=== PATIENT | female | born 1990 | race Caucasian/White ===

== ENCOUNTER 2017-06-08 07:17 | Inpatient (IN) | payer OTHER ==
[~2017-06-08] VITALS: Ht 170.2 cm; Wt 74.8 kg
[~2017-06-08 07:17] MED LIST: ACCUNEB 3 ML3 M1 INH; ACCUNEB 3 ML3 M1 NEB; ADVAIR DISKUS 21 DSK; ADVAIR DISKUS 21 DSK INH; ADVAIR DISKUS1 UNIT INH; ALBUTEROL SULFAT3 M1 NEB; ATROVENT HFA 121 PUF INH; MONTELUKAST SOD10 MG; PREDNISONE 10MG10 M1 PO; PREDNISONE 20MG20 MG PO; PREDNISONE10 MG PO; PREDNISONE50 M1 PO; PROAIR HFA0.09 MG/Ac INH; SINGULAIR10 MG PO; VENTOLIN HFA18 GM INH; VENTOLIN1 PUF INH; ZITHROMAX Z-PA250 M1 PO; ZITHROMAX250 M2 PO
--- NOTE | 2017-06-08 07:28 | ED DYSPNEA/ASTHMA COMPLAINT ---
History of Present Illness General Chief Complaint: Dyspnea (COPD, CHF, Other) Stated Complaint: BIBA, DIFF BREATHING Source: patient Exam Limitations: clinical condition Vital Signs & Intake/Output Vital Signs & Intake/Output Vital Signs Date Time Temp Pulse Resp B/P B/P Pulse O2 O2 Flow FiO2 Mean Ox Delivery Rate 06/08 918 99.4 107 26 122/63 94 Nasal 3.0L Cannula 06/08 0845 94 Nasal 3.0L Cannula 06/08 0801 94 Nasal 3.0L Cannula 06/08 0742 94 Nasal 3.0L Cannula 06/08 722 98.9 117 26 141/70 95 Nasal 3.0L Cannula Allergies Coded Allergies: Sulfa (Sulfonamide Antibiotics) (UNKNOWN 06/06/17) cefaclor (UNKNOWN 06/06/17) Reconcile Medications Albuterol Sulfate (Ventolin Hfa) 90 MCG HFA.AER.AD 2 PUF INH Q4-6 PRN PRN wheeze Budesonide/Formoterol Fumarate (Symbicort 160-4.5 Mcg Inhaler) 160 MCG-4.5 MCG/ ACTUATION HFA.AER.AD 2 PUF INH BID BREATHING PROBLEMS (Reported) Omeprazole 20 MG CAPSULE.DR 20 MG PO DAILY AC ASTHMA Prednisone 10 MG TABLET 1 TAB PO DAILY ASTHMA Triage Nurses Notes Reviewed? yes Onset: Gradual Duration: day(s):, continues in ED, getting worse Severity: severe Activities at Onset: none : No Patient currently breastfeeds: No HPI: Patient presents for evaluation of severe shortness of breath that began 3 days ago. Shortness of breath is been severe nearly constant but fluctuates in intensity. Patient gets mild relief with albuterol. She was evaluated about 3 days ago in the emergency department for the same symptom complex and has been taking albuterol prednisone Symbicort and a Z-Hira. She is a cigarette smoker although has cut down over the past few days. Past medical history of asthma. Symptoms worsened with exertion and coughing. All the patient denies fever or cold symptoms, she has been wheezing and coughing and producing phlegm. Past History Travel History Traveled to [place] past 21 day No Medical History Any Pertinent Medical History? 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 No Review of Systems Review of Systems Constitutional: Reports: no symptoms. EENTM: Reports: no symptoms. Respiratory: Reports: see HPI. Cardiovascular: Reports: no symptoms. GI: Reports: no symptoms. Genitourinary: Reports: no symptoms. Musculoskeletal: Reports: no symptoms. Skin: Reports: no symptoms. Neurological/Psychological: Reports: no symptoms. Hematologic/Endocrine: Reports: no symptoms. Immunologic/Allergic: Reports: no symptoms. All Other Systems: Reviewed and Negative Physical Exam Physical Exam Respiratory: SEE BELOW Comments: Gen.: Well-nourished, well-developed, moderate respiratory distress. Head: Normocephalic, atraumatic. Eyes: Normal inspection bilaterally Ears: Normal inspection bilaterally Nose: Normal inspection Throat/mouth : Moist mucosa Neck: Supple, full range of motion, no goiter Heart: Regular rate and rhythm, no murmurs rubs or gallops Lungs: Decreased air entry bilaterally with scattered end expiratory wheezing Chest: Nontender Back: Normal range of motion Abdomen: Soft, nontender, nondistended, normal bowel sounds Extremities: Normal range of motion grossly, equal radial pulses, no cyanosis clubbing or edema, calves nontender Neurologic: Cranial nerves grossly intact, speech is clear Skin: warm and dry Psychiatric: Calm, cooperative, no apparent delusions or hallucinations Core Measures ACS in differential dx? No CVA/TIA Diagnosis No Sepsis Present: No Sepsis Focused Exam Completed? No Progress Differential Diagnosis: bronchitis, CHF, COPD, pneumonia, pneumothorax Plan of Care: Orders Procedure Date/time Status AEROSOL CHG 06/10 UNK Complete PEAK FLOW MEASUREMENT 06/10 UNK Complete OXYGEN 06/10 UNK Complete OXYGEN DAILY CHARGE 06/10 UNK Complete AEROSOL CHG 06/09 UNK Complete PEAK FLOW MEASUREMENT 06/09 UNK Complete OXYGEN 06/09 UNK Complete OXYGEN DAILY CHARGE 06/09 UNK Complete OXYGEN SETUP CHG 06/08 UNK Complete AEROSOL CHG 06/08 UNK Complete PEAK FLOW MEASUREMENT 06/08 UNK Complete OXYGEN 06/08 UNK Complete OXYGEN TRANSPORT 06/08 UNK Complete CONTIN. POS. AIRWAY PRESS. CHG 06/08 UNK Complete Diagnostic Imaging: Viewed by Me: Radiology Read. Discussed w/RAD: Radiology Read. CXR Impression: PATIENT: ALANNA CUMMINGS PRESENT AGE: 26 PATIENT ACCOUNT NO: [id number] : 89 LOCATION: [facility] ORDERING PHYSICIAN: Jose Alfredo Figueroa MD SERVICE DATE: 06/08/17 EXAM TYPE: RAD - XRY-PORTABLE CHEST XRAY EXAMINATION: XR PORTABLE CHEST CLINICAL INFORMATION: Cough, wheezing, phlegm COMPARISON: Multiple priors, most recent from 06/06/2017. TECHNIQUE: Portable frontal view of the chest was obtained. FINDINGS: Large lung volumes. No focal airspace opacification. No pleural effusion or pneumothorax. The cardiomediastinal silhouette is within normal limits. Osseous structures are unremarkable. IMPRESSION: No focal airspace disease. DICTATED BY: Meche Campuzano MD DATE/TIME DICTATED:06/08/17757 PC SUPPORT SPECIALIST:NENA DATE/ TIME TRANSCRIBED:06/08/17757 CONFIDENTIAL, DO NOT COPY WITHOUT APPROPRIATE AUTHORIZATION. <Electronically signed in Other Vendor System> SIGNED BY: Meche Campuzano MD 06/08/17804 Initial ED EKG: NSR, no ST T wave changes Comments: 06/08/2017 8:36:38 AM I have reevaluated ALANNA and although she feels better her breath sounds are still diminished and she still has bilateral expiratory wheezing. Another albuterol has been ordered. 06/08/2017 9:30:38 AM although patient feels slightly better. Air entry is still diminished and she still has diffuse end expiratory wheezing. I feel she requires hospitalization. Departure Departure Disposition: STILL A PATIENT Condition: Stable Clinical Impression Primary Impression: Status asthmaticus Qualifiers: Asthma severity: severe Asthma persistence: persistent Qualified Code: J45.52 - Severe persistent asthma with status asthmaticus Referrals: Patient Has No Primary Care Dr (PCP/Family) Departure Forms: Customer Survey General Discharge Information Prescriptions: Current Visit Scripts Prednisone 1 TAB PO DAILY #36 TAB Omeprazole 20 MG PO DAILY AC #30 TAB Admission Note Spoke With: Vaughn White MD Documentation of Exam: Documentation of any treatments & extenuating circumstances including Concerns Regarding Discharge (functional status, medication knowledge or non-compliance, living conditions, etc.) that warrant an admission rather than observation: patient has failed outpatient treatment with azithromycin, prednisone, albuterol and Symbicort, for her asthma exacerbation. I feel that continued outpatient management would only be futile and potentially place the patient at risk of worsening dyspnea, respiratory failure and mortality. She continues to have decreased breath sounds with scattered wheezes and dyspnea. She now requires hospitalization for more aggressive management with inhaled bronchodilators, IV steroids and oxygen supplementation. Oxygen should be weaned as tolerated. Pulmonary consultation should be considered for optimization of medical management and consideration of pulmonary function studies. Patient should be counseled on smoking cessation. I feel she will require a multiple day hospitalization. Observation Note Rationale for Observation: My rational for observation is as follows Critical Care Note Critical Care Note Critical Care Time: 30-74 min
[2017-06-08 07:59] LABS: ABSOLUTE BASOPHIL COUNT 0 /CUMM (0.0-0.2); ABSOLUTE EOSINOPHIL COUNT 0 /CUMM (0.0-0.7); ABSOLUTE GRANULOCYTE CT 10.7 /CUMM (1.4-6.5); ABSOLUTE LYMPH COUNT 0.9 /CUMM (1.2-3.4); BASOPHIL % 0 % (0.0-2.0); EOSINOPHIL % 0 % (0-5)
--- NOTE | 2017-06-08 08:05 | RADIOLOGY REPORT ---
EXAMINATION: XR PORTABLE CHEST CLINICAL INFORMATION: Cough, wheezing, phlegm COMPARISON: Multiple priors, most recent from 06/06/2017. TECHNIQUE: Portable frontal view of the chest was obtained. FINDINGS: Large lung volumes. No focal airspace opacification. No pleural effusion or pneumothorax. The cardiomediastinal silhouette is within normal limits. Osseous structures are unremarkable. IMPRESSION: No focal airspace disease.
[2017-06-08 08:06] LABS: HEMATOCRIT 45.9 % (37-47); MEAN CORPUSCULAR HGB 28.1 PG (27.0-31.0); MEAN CORPUSCULAR VOLUME 82.7 FL (81.0-99.0); PLATELET COUNT 241 /CUMM (130-400); RBC DISTRIBUTION WIDTH 12.6 % (11.5-14.5); RED BLOOD CELL CT 5.55 /CUMM (4.20-5.40)
[2017-06-08 08:12] LABS: WHITE BLOOD CELL COUNT 12.6 /CUMM (4.8-10.8)
[2017-06-08 08:27] LABS: GRANULOCYTE % 84.6 % (42.2-75.2)
[2017-06-08] MEDS ORDERED: SYMBICORT 16010.2 GM INH (08:38)
--- NOTE | 2017-06-08 12:03 | History & Physical ---
Mykel MANTILLA,Caitcelestine 06/08/17 1202: General Information and HPI MD Statement: I have seen and personally examined ALANNA CUMMINGS and documented this H&P. The patient is a 26 year old F who presented with a patient stated chief complaint of [SOB]. Source of Information: patient, family, old records Exam Limitations: no limitations History of Present Illness: This is a 26 yo female with PMH of asthma, anxiety, panic attacks who comes in for CC SOB. She states that her symptoms started about 5 days ago and worsened until she came to ED on Jun 05 for dyspnea with minimal exertion (walking from front door to car). Her symptoms were of sudden onset. She woke up with malaise, some coryza and a dry cough. At peak severity, on day of ED visit, she took 60 puffs of albuterol. Currently down to about 20 puffs a day. She was d/c from ED with albuterol, Azithromax, and prednisone. She has had previous admission to ICU for bipap for asthma exacerbation but never intubated. She is a current smoker with 7 pack year hx. She used to smoke 1 PPD but now down to 3-5 cigarettes a day. Endorses recreational etoh use and no IVDA. She had symbicort at home. The combination of the four meds have resolved some of her discomfort but she still finds herself short of breath with minimal exertion. Currently she endorses SOB, anxiety, palpitations and cough but denies CP, N//V/ D/abdominal pain/headache. Allergies/Medications Allergies: Coded Allergies: Sulfa (Sulfonamide Antibiotics) (UNKNOWN 06/06/17) cefaclor (UNKNOWN 06/06/17) Home Med list Albuterol Sulfate (Ventolin Hfa) 90 MCG HFA.AER.AD 2 PUF INH Q4-6 PRN PRN wheeze Azithromycin (Zithromax) 250 MG TABLET 1 DP PO AD bronchitis ++++ pt received first dose in ED. 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 Exam & Diagnostic Data Last 24 Hrs of Vital Signs/I&O Vital Signs Date Time Temp Pulse Resp B/P B/P Pulse O2 O2 Flow FiO2 Mean Ox Delivery Rate 06/08 1352 98.0 112 20 138/80 97 Nasal 3.0L Cannula 06/08 1226 98.6 100 20 120/80 93 Nasal 3.0L Cannula 06/08 1223 93 Nasal 3.0L Cannula 06/08 1054 99.3 100 20 126/60 95 Nasal 3.0L Cannula 06/08 0919 99.4 107 26 122/63 94 Nasal 3.0L Cannula 06/08 0845 94 Nasal 3.0L Cannula 06/08 0801 94 Nasal 3.0L Cannula 06/08 0742 94 Nasal 3.0L Cannula 06/08 0723 98.9 117 26 141/70 95 Nasal 3.0L Cannula Intake & Output 06/08 1600 06/08 0800 06/08 0000 Intake Total Output Total Balance Patient 74.843 kg 72.575 kg Weight Weight Reported by Patient Reported by Patient Measurement Method Physical Exam General Appearance Alert, Oriented X3, Cooperative, Mild Distress HEENT Atraumatic, PERRLA, EOMI, Mucous Membr. moist/pink Neck Supple, No LAD Cardiovascular tachycardic Lungs diffuse expiratory wheezes in all lung youssef. She also has diminished air movement. Abdomen Soft, No Tenderness Neurological Normal Speech, Cranial Nerves 3-12 NL Last 24 Hrs of Labs/Zion: Laboratory Tests 06/08/17 0748: Anion Gap 15, Estimated GFR > 60, BUN/Creatinine Ratio 24.3, Glucose 101 H, Calcium 9.6, Magnesium 2.0, Troponin I 0.09, CBC w Diff NO MAN DIFF REQ, RBC 5.55 H, MCV 82.7, MCH 28.1, RDW 12.6, MPV 8.0, Gran % 84.6 H, Lymphocytes % 7.2 L, Monocytes % 8.2, Eosinophils % 0, Basophils % 0, Absolute Granulocytes 10.7 H, Absolute Lymphocytes 0.9 L, Absolute Monocytes 1.0 H, Absolute Eosinophils 0, Absolute Basophils 0, PUBS MCHC 34.0 Assessment/Plan Assessment: ASSESSMENT: This is a 26 yo female with PMH of asthma, anxiety, panic attacks who comes in for CC of SOB. Despite attempt at outpt mangement of asthma exacerbation she returns with moderate severity exacerbation. Given failure of outpt mgmt will admit to for further monitoring and trt. PLAN: 1. Asthma exacerbation: Pt has had previous ICU admission for BiPap which places her in a higher risk category. In ED she got O2, nebulzied atroven and albuterol along with solumedrol. She meets criteria for modrate severity of exacerbation. * Trop and EKG nml * TRC * O2 * ABG * Peak flow * No steroid scheduled for her beyond 1x dose in ED. Monitor and re-assess * Mag not given as she did not look severe enough to require it. If worsens then would give Mag * Pulm consult 2. Anxiety: Pt does take ativan for anxiety. Gien albuterol and steroids she feels more anxious than usual. * Will keep .25mg xanax BID PRN 3. Smoking cessation: She currently smokes 3-5 cigarettes a day. Previously PPD. Have encouraged cessation. * holding off patch given tachycadia As Ranked By This Provider Problem List: 1. Asthma exacerbation Core Measures/Misc (02/11) Acute Coronary Syndrome ACS Diagnosis: No Congestive Heart Failure Congestive Heart Failure Diagnosis No Cerebrovascular Accident CVA/TIA Diagnosis: No VTE (View Protocol) VTE Risk Factors Smoker No Mechanical VTE Prophylaxis d/t N/A MechProphylax Ordered No VTE Pharm Prophylaxis d/t NA PharmProphylax ordered Sepsis (View protocol) Sepsis Present: No Vaughn White MD 06/08/17 1314: Attending MD Review Statement Attending Statement Attending MD Statement: examined this patient, discuss w/resident/PA/MANAGER CONSUMER INSIGHTS, agreed w/resident/PA/MANAGER CONSUMER INSIGHTS, reviewed EMR data (avail) Attending Assessment/Plan: 26F PMH asthma, anxiety, active smoker presenting with 2 days of progressively worsening shortness of breath and dyspnea in the setting of asthma exacerbation. Reports mild cough the few days prior, no sputum, with worsening difficulty breathing, Albuterol inhaler of no help, and multiple nebulizer treatments given in ED before improvement. Denies fever, chills, chest pain, palpitations, diarrhea, dysuria. Patient feels better than she did this morning and is able to speak in full sentences, but sounds short of breath while doing so. She is dyspneic with minimal exertion. Bilateral significant wheezing. 1. Status asthmaticus 2. Anxiety Plan - Admit to general medicine - Solumedrol - Nebulizer treatments - Pulmonary consult - Daily peak flow - Sputum culture - Continue home meds including PRN Xanax - DVT PPx
[2017-06-08 12:26] VITALS: BP 120/80
--- NOTE | 2017-06-08 13:15 | Admission Certification ---
Admission Certification Certification Statement - As attending physician, I certify that at the time of - admission, based on clinical presentation, severity of - symptoms, need for further diagnostic testing and - therapeutic interventions, and risk of adverse outcomes - without in-hospital treatment, in my clinical assessment, - this patient requires an acute hospital stay for a minimum - of two nights or longer. I have also considered psychsocial - factors such as support system, advanced age, financial - issues, cognitive issues, and failed out-patient treatments, - past re-admission history, safety of patient, and lack of - compliance as applicable. Specific rationale supporting this admission is: Status asthmaticus
[2017-06-08 13:52] VITALS: BP 138/80
--- NOTE | 2017-06-08 17:46 | Cons- Pulmonary ---
General Information and HPI Consulting Request Date of Consult: 06/08/17 Requested By: med team History of Present Illness: This is a 26 yo female with PMH of asthma, anxiety, panic attacks who comes in for CC SOB. She states that her symptoms started about 5 days ago and worsened until she came to ED on Jun 05 for dyspnea with minimal exertion (walking from front door to car). Her symptoms were of sudden onset. She woke up with malaise, some coryza and a dry cough. At peak severity, on day of ED visit, she took 60 puffs of albuterol. Currently down to about 20 puffs a day. She was d/c from ED with albuterol, Azithromax, and prednisone. She has had previous admission to ICU for bipap for asthma exacerbation but never intubated. She is a current smoker with 7 pack year hx. She used to smoke 1 PPD but now down to 3-5 cigarettes a day. Endorses recreational etoh use and no IVDA. She had symbicort at home. The combination of the four meds have resolved some of her discomfort but she still finds herself short of breath with minimal exertion. Currently she endorses SOB, anxiety, palpitations and cough but denies CP, N//V/ D/abdominal pain/headache. Since she came in here she's been having significant wheezing and cough. This afternoon she was noted to be in acute respiratory distress and has now been put on noninvasive ventilator. When I saw her she was comfortable sitting up in bed and was significantly wheezing. She was on BiPAP. She could speak in full sentences. She was complaining of significant cough especially after she does use her nebulizer. Unfortunately she has significant allergies to dogs and she has 4 dogs at home. 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 Her IgE was more than 1000. She continues to smoke unfortunately. Does not smoke any marijuana and gives no history suggestive of the polysubstance abuse. Allergies/Medications Allergies: Coded Allergies: Sulfa (Sulfonamide Antibiotics) (UNKNOWN 06/06/17) cefaclor (UNKNOWN 06/06/17) Home Med List: Albuterol Sulfate (Ventolin Hfa) 90 MCG HFA.AER.AD 2 PUF INH Q4-6 PRN PRN wheeze Azithromycin (Zithromax) 250 MG TABLET 1 DP PO AD bronchitis ++++ pt received first dose in ED. Budesonide/Formoterol Fumarate (Symbicort 160-4.5 Mcg Inhaler) 160 MCG-4.5 MCG/ ACTUATION HFA.AER.AD 2 PUF INH BID BREATHING PROBLEMS (Reported) Prednisone 50 MG TABLET 1 TAB PO DAILY wheezing/asthma Review of Systems Review of Systems Constitutional: Denies: see HPI. 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 Home Services at Home: None Smoking Status: Light Tobacco Smoker ETOH Use: denies use Illicit Drug Use: denies illicit drug use Exam & Diagnostic Data Last 24 Hrs of Vital Signs/I&O Vital Signs Date Time Temp Pulse Resp B/P B/P Pulse O2 O2 Flow FiO2 Mean Ox Delivery Rate 06/08 1619 105 99 06/08 1443 Nasal 3.0L Cannula 06/08 1352 98.0 112 20 138/80 97 Nasal 3.0L Cannula 06/08 1226 98.6 100 20 120/80 93 Nasal 3.0L Cannula 06/08 1223 93 Nasal 3.0L Cannula 06/08 1054 99.3 100 20 126/60 95 Nasal 3.0L Cannula 06/08 0919 99.4 107 26 122/63 94 Nasal 3.0L Cannula 06/08 0845 94 Nasal 3.0L Cannula 06/08 0801 94 Nasal 3.0L Cannula 06/08 0742 94 Nasal 3.0L Cannula 06/08 0723 98.9 117 26 141/70 95 Nasal 3.0L Cannula Intake & Output 06/08 1600 06/08 0800 06/08 0000 Intake Total 800 Output Total 300 Balance 500 Intake, Oral 800 Output, Urine 300 Patient 165 lb 160 lb Weight Weight Reported by Patient Reported by Patient Measurement Method Last 48 Hrs of Labs/Zion: Laboratory Tests 06/08/17 0748: Anion Gap 15, Estimated GFR > 60, BUN/Creatinine Ratio 24.3, Glucose 101 H, Calcium 9.6, Phosphorus 5.4 H, Magnesium 2.0, Troponin I 0.09, CBC w Diff NO MAN DIFF REQ, RBC 5.55 H, MCV 82.7, MCH 28.1, RDW 12.6, MPV 8.0, Gran % 84.6 H , Lymphocytes % 7.2 L, Monocytes % 8.2, Eosinophils % 0, Basophils % 0, Absolute Granulocytes 10.7 H, Absolute Lymphocytes 0.9 L, Absolute Monocytes 1.0 H, Absolute Eosinophils 0, Absolute Basophils 0, PUBS MCHC 34.0 Assessment/Plan Impression/Plan: General Appearance Alert, Oriented X3, Cooperative, Mild Distress/on BiPAP, significantly dyspneic using accessory muscles. HEENT Atraumatic, PERRLA, EOMI, Mucous Membr. moist/pink Neck Supple, No LAD Cardiovascular tachycardic Lungs diffuse expiratory wheezes in all lung youssef. She also has diminished air movement. Abdomen Soft, No Tenderness Neurological Normal Speech, Cranial Nerves 3-12 NL SIGNIFICANT DATA Chest x-ray unremarkable Previous respiratory allergy panel reviewed which shows that she has significant allergies to dog and her dog IgE was more than 85 and her total IgE was more than 1000. She is also has positive IgE for Birch Maple and oak. Other blood work reviewed. She has had eosinophilia before. Her baseline bicarbonate was normal anion gap was 17 earlier and 15 today. A white count was not elevated on the now elevated today probably related to steroids. IMPRESSION This is a 26-year-old lady with moderate to severe persistent asthma, anxiety, panic attack, significant allergies to dog and trees who has 4 dogs at home, significant eosinophilic asthma, significantly elevated IgE, now comes in with acute severe asthma. Her issues include * Acute hypoxemic respiratory failure now requiring noninvasive ventilator due to acute severe asthma exacerbation * Significant allergic asthma with eosinophilia with very high IgE * Significant allergy to dogs unfortunately patient has many dogs at home which is inciting or asthma * Ongoing cigarette smoking * Anxiety with steroids exacerbating this is well RECOMMENDATION * Continue high-dose intravenous steroids increase the dose to 60 mg every 8 hours * [id number] nebulizer therapy with DuoNeb every 4 hours * Discontinue oxycodone and ibuprofen * Continue low-dose benzo * Continue azithromycin * Continue noninvasive ventilation for now * Urine tox screen * Continue subcutaneous heparin or Lovenox * Keep the head of bed elevated * Start proton pump inhibitor Low threshold for transfer to the ICU Discussed with the patient and the mother extensively about her allergen exposure Consult Acknowledgment - Thank you for your consult request.
[2017-06-08 22:18] VITALS: BP 112/60
[2017-06-09 06:20] VITALS: BP 114/66
--- NOTE | 2017-06-09 09:08 | PN- Housestaff ---
Fredi MANTILLA,Aaliyah 06/09/17 0908: Subjective Follow-up For: Asthma exacerbation Subjective: Patient is seen and examined at bedside, she reports feeling much better, was improvement of her shortness of breath, still endorses some cough and wheezing, saturating at 94 on 3 L nasal oxygen, started on IV Solu-Medrol Review of Systems Constitutional: Denies: chills, fever. Cardiovascular: Denies: no symptoms. Respiratory: Reports: cough, short of breath, sputum production. Denies: hemoptysis, orthopnea. Gastrointestinal: Denies: no symptoms. Genitourinary: Denies: no symptoms. Musculoskeletal: Denies: no symptoms. Objective Last 24 Hrs of Vital Signs/I&O Vital Signs Date Time Temp Pulse Resp B/P B/P Pulse O2 O2 Flow FiO2 Mean Ox Delivery Rate 06/09 1153 94 Nasal 3.0L Cannula 06/09 0812 94 Nasal 3.0L Cannula 06/09 0620 98.3 83 20 114/66 96 Nasal Cannula 06/09 0229 92 06/09 0000 Nasal 3.0L Cannula 06/08 2218 98.3 93 20 112/60 99 Nasal Cannula 06/08 1939 98 BIPAP 30% 06/08 1619 105 99 06/08 1443 Nasal 3.0L Cannula Intake & Output 06/09 1600 06/09 0800 06/09 0000 Intake Total 200 Output Total Balance 200 Intake, Oral 200 Physical Exam General Appearance: Alert, Oriented X3, Cooperative, No Acute Distress HEENT: Atraumatic, PERRLA, EOMI, Mucous Membr. moist/pink Neck: Supple, No JVD Cardiovascular: Normal S1, Normal S2, No Murmurs Lungs: diffuse wheezes with decreased air entery Abdomen: Normal Bowel Sounds, Soft, No Tenderness Neurological: Normal Speech Extremities: No Clubbing, No Cyanosis, No Edema Assessment/Plan Assessment: 26 yo female with PMH of moderate to severe persistent asthma, anxiety, panic attacks, allergies to dogs trees who has 4 dogs at home who comes in for CC of SOB. With significant eosinophilia and elevated IgE 1. Asthma exacerbation: Continue IV steroids TRC O2 Peak flow U tox follow-up We'll continue low-dose benzodiazepine when necessary Bono continue azithromycin Nebulizers with DuoNeb PPI 20 mg daily Keep head of the bed elevated 2. Anxiety: Pt does take ativan for anxiety. Gien albuterol and steroids she feels more anxious than usual. * Will keep .25mg xanax BID PRN 3. Smoking cessation: She currently smokes 3-5 cigarettes a day. Previously PPD. Have encouraged cessation. * holding off patch given tachycadia full code DVT prophylaxix sc Heparin reg diet Problem List: 1. Smoking 2. Asthma exacerbation Pain Ratin Pain Location: n/a Pain Goal: Remain pain free Pain Plan: pathway Tomorrow's Labs & Rationales: cbc bep DVT/Prophylaxis: mechanical, pharmacological Vaughn White MD 06/09/172027: Attending MD Review Statement Attending Statement Attending MD Statement: examined this patient, discuss w/resident/PA/TAR AND AMMONIA PUMP OPERATOR, agreed w/resident/PA/TAR AND AMMONIA PUMP OPERATOR, reviewed EMR data (avail) Attending Assessment/Plan: 26F PMH asthma, anxiety, active smoker presenting with 2 days of progressively worsening shortness of breath and dyspnea in the setting of asthma exacerbation. Reports mild cough the few days prior, no sputum, with worsening difficulty breathing, Albuterol inhaler of no help, and multiple nebulizer treatments given in ED before improvement. Denies fever, chills, chest pain, palpitations, diarrhea, dysuria. Patient feels better than she did this morning and is able to speak in full sentences, but sounds short of breath while doing so. She is dyspneic with minimal exertion. Bilateral significant wheezing. 1. Status asthmaticus 2. Anxiety Plan - Admit to general medicine - Solumedrol, taper tomorrow - Nebulizer treatments - Pulmonary consult - Daily peak flow - Sputum culture - Continue home meds including PRN Xanax - DVT PPx
[2017-06-09 09:49] LABS: ABSOLUTE BASOPHIL COUNT 0 /CUMM (0.0-0.2); ABSOLUTE EOSINOPHIL COUNT 0 /CUMM (0.0-0.7); ABSOLUTE GRANULOCYTE CT 5.4 /CUMM (1.4-6.5); ABSOLUTE LYMPH COUNT 1.2 /CUMM (1.2-3.4); ABSOLUTE MONOCYTE COUNT 0.7 /CUMM (0.10-0.60); BASOPHIL % 0.3 % (0.0-2.0); EOSINOPHIL % 0.1 % (0-5); GRANULOCYTE % 73.4 % (42.2-75.2); HEMATOCRIT 45.4 % (37-47); MEAN CORPUSCULAR HGB 28.2 PG (27.0-31.0); MEAN CORPUSCULAR HGB CONC 33.6 G/DL (33.0-37.0); MEAN CORPUSCULAR VOLUME 83.9 FL (81.0-99.0); MEAN PLATELET VOLUME 8.4 FL (7.4-10.4); PLATELET COUNT 258 /CUMM (130-400); RED BLOOD CELL CT 5.41 /CUMM (4.20-5.40); WHITE BLOOD CELL COUNT 7.4 /CUMM (4.8-10.8)
--- NOTE | 2017-06-09 13:37 | PN- Pulmonary ---
Subjective HPI/Critical Care Issues: Much improved Off bipap stable Objective Current Medications: Current Medications Sig/Leopoldo Start time Last Medication Dose Route Stop Time Status Admin Acetaminophen 650 MG Q6P PRN 06/08 1200 AC PO Albuterol Sulfate 3 ML EVERY 4 HRS/AWAKE 06/08 1600 AC 06/09 INH 1153 Alprazolam 0.25 MG ONCE ONE 06/08 1630 DC 06/08 PO 06/08 1631 1634 Alprazolam 0.25 MG BID PRN 06/08 1430 AC 06/08 PO 06/15 1429 2234 Azithromycin 250 MG DAILY 06/09 1000 AC 06/09 PO 06/10 1001 1003 Enoxaparin Sodium 40 MG DAILY 06/09 1000 AC SC Ibuprofen 600 MG Q6P PRN 06/08 1200 AC PO Magnesium Sulfate 1 GM ONCE ONE 06/08 1600 DC 06/08 Dextrose/Water 100 ML IV 06/08 1959 1721 Methylprednisolone 40 MG Q8 06/09 0600 AC 06/09 IV 0608 Oxycodone HCl 10 MG Q6P PRN 06/08 1200 AC PO Vital Signs & I&O Last 24 Hrs of Vitals and I&O: Vital Signs Date Time Temp Pulse Resp B/P B/P Pulse O2 O2 Flow FiO2 Mean Ox Delivery Rate 06/09 1153 94 Nasal 3.0L Cannula 06/09 0812 94 Nasal 3.0L Cannula 06/09 0620 98.3 83 20 114/66 96 Nasal Cannula 06/09 0229 92 06/09 0000 Nasal 3.0L Cannula 06/08 2218 98.3 93 20 112/60 99 Nasal Cannula 06/08 1939 98 BIPAP 30% 06/08 1619 105 99 06/08 1443 Nasal 3.0L Cannula 06/08 1352 98.0 112 20 138/80 97 Nasal 3.0L Cannula Intake & Output 06/09 1600 06/09 0800 06/09 0000 Intake Total 200 Output Total Balance 200 Intake, Oral 200 Impression/Plan Impression/Plan Impression/Plan: General Appearance Alert, Oriented X3, Cooperative, Mild Distress/on BiPAP, significantly dyspneic using accessory muscles. HEENT Atraumatic, PERRLA, EOMI, Mucous Membr. moist/pink Neck Supple, No LAD Cardiovascular tachycardic Lungs diffuse expiratory wheezes in all lung youssef. She also has diminished air movement. Abdomen Soft, No Tenderness Neurological Normal Speech, Cranial Nerves 3-12 NL SIGNIFICANT DATA Chest x-ray unremarkable Previous respiratory allergy panel reviewed which shows that she has significant allergies to dog and her dog IgE was more than 85 and her total IgE was more than 1000. She is also has positive IgE for Birch Maple and oak. Other blood work reviewed. She has had eosinophilia before. Her baseline bicarbonate was normal anion gap was 17 earlier and 15 today. A white count was not elevated on the 10th now elevated today probably related to steroids. IMPRESSION This is a 26-year-old lady with moderate to severe persistent asthma, anxiety, panic attack, significant allergies to dog and trees who has 4 dogs at home, significant eosinophilic asthma, significantly elevated IgE, now comes in with acute severe asthma. Her issues include * Resolving Acute hypoxemic respiratory failure, initially requiring noninvasive ventilator due to acute severe asthma exacerbation. Now off BPAP and improving * Significant allergic asthma with eosinophilia with very high IgE * Significant allergy to dogs unfortunately patient has many dogs at home which is inciting or asthma * Ongoing cigarette smoking * Anxiety with steroids exacerbating this is well RECOMMENDATION * Continue high-dose intravenous steroids * [id number] nebulizer therapy with DuoNeb every 4 hours * Continue low-dose benzo prn * Continue azithromycin * Urine tox screen * Continue subcutaneous heparin or Lovenox * Keep the head of bed elevated * Start proton pump inhibitor Discussed with the patient and the mother extensively about her allergen exposure
[2017-06-09 14:49] VITALS: BP 110/60
[2017-06-09 22:39] VITALS: BP 130/80
[2017-06-10 06:53] VITALS: BP 116/80
--- NOTE | 2017-06-10 08:49 | PN- Housestaff ---
Fredi MANTILLA,Aaliyah 06/10/17 0849: Subjective Follow-up For: Asthma exacerbation Subjective: Patient is seen and examined at bedside, she reports feeling much better, was improvement of her shortness of breath, still endorses some cough and wheezing, saturating at 94 on 3 L nasal oxygen, started on IV Solu-Medrol Patient wanted to go home, and said would leave AMA Review of Systems Constitutional: Denies: no symptoms. Cardiovascular: Denies: no symptoms. Respiratory: Reports: cough, short of breath, sputum production, wheezing. Gastrointestinal: Denies: no symptoms. Genitourinary: Denies: no symptoms. Musculoskeletal: Denies: no symptoms. Objective Last 24 Hrs of Vital Signs/I&O Vital Signs Date Time Temp Pulse Resp B/P B/P Pulse O2 O2 Flow FiO2 Mean Ox Delivery Rate 06/10 0800 95 Nasal 1.0L Cannula 06/10 0756 98 Nasal 2.0L Cannula 06/10 0653 98.5 84 20 116/80 92 06/10 0000 93 Nasal 2.0L Cannula 06/09 2239 98.7 68 20 130/80 93 Nasal Cannula 06/09 1655 97 Nasal 3.0L Cannula 06/09 1600 93 Nasal 3.0L Cannula 06/09 1449 98.6 69 20 110/60 96 Intake & Output 06/10 1600 06/10 0800 06/10 0000 Intake Total 500 50 480 Output Total 200 Balance 500 50 280 Intake, IV 0 Intake, Oral 500 50 480 Number 0 Bowel Movements Output, Urine 200 Physical Exam General Appearance: Alert, Oriented X3, Cooperative, No Acute Distress HEENT: Atraumatic, PERRLA, EOMI, Mucous Membr. moist/pink Neck: Supple, No JVD Cardiovascular: Normal S1, Normal S2, No Murmurs Lungs: bilateral wheezes Abdomen: Normal Bowel Sounds, Soft, No Tenderness Neurological: Normal Speech, Strength at 5/5 X4 Ext, Normal Tone, Sensation Intact Extremities: No Clubbing, No Cyanosis, No Edema Assessment/Plan Assessment: 26 yo female with PMH of moderate to severe persistent asthma, anxiety, panic attacks, allergies to dogs trees who has 4 dogs at home who comes in for CC of SOB. With significant eosinophilia and elevated IgE 1. Asthma exacerbation: Continue IV steroids TRC O2 Peak flow U tox follow-up We'll continue low-dose benzodiazepine when necessary Aguilar continue azithromycin Nebulizers with DuoNeb PPI 20 mg daily Keep head of the bed elevated 2. Anxiety: Pt does take ativan for anxiety. Gien albuterol and steroids she feels more anxious than usual. * Will keep .25mg xanax BID PRN 3. Smoking cessation: She currently smokes 3-5 cigarettes a day. Previously PPD. Have encouraged cessation. * holding off patch given tachycadia Shown to be leaving AMA full code DVT prophylaxix sc Heparin reg diet Problem List: 1. Asthma exacerbation Pain Ratin Pain Location: n/a Pain Goal: Remain pain free Pain Plan: pathway Tomorrow's Labs & Rationales: nne DVT/Prophylaxis: mechanical, pharmacological Vaughn White MD 06/10/17 1704: Attending MD Review Statement Attending Statement Attending MD Statement: examined this patient, discuss w/resident/PA/PATIENT SERVICES ASSISTANT, agreed w/resident/PA/PATIENT SERVICES ASSISTANT, reviewed EMR data (avail) Attending Assessment/Plan: 26F PMH asthma, anxiety, active smoker presenting with 2 days of progressively worsening shortness of breath and dyspnea in the setting of asthma exacerbation. Reports mild cough the few days prior, no sputum, with worsening difficulty breathing, Albuterol inhaler of no help, and multiple nebulizer treatments given in ED before improvement. Denies fever, chills, chest pain, palpitations, diarrhea, dysuria. Still with significant wheezing on the left, but overall looks better. Patient wishes to leave AMA. The risks and benefits have been explained and patient is able to understand and has insight. She accepts the risks of leaving against medical advice. 1. Status asthmaticus 2. Anxiety Plan - Discharge AMA - Prednisone taper - Continue home inhalers - Pulmonary outpatient follow up - Continue home meds including PRN Xanax
[2017-06-10] MEDS ORDERED: PREDNISONE10 M2 PO (12:59)
[2017-06-10] MEDS ORDERED: OMEPRAZOLE20 M2 PO (13:00)
--- NOTE | 2017-06-10 13:01 | Patient Discharge Instructions ---
Discharge Instructions General Discharge Information You were seen/treated for: ASTHMA EXACERBATION Special Instructions: PLEASE FOLLOW UP [employer]ATHRIN [employer]OWER LINE REPAIRER IN 1 WEEK OF DISCHARGE f/U WITH YOUR PCP IN 1 WEEK Diet Continue normal diet: Yes Activity Full Activity/No Limits: Yes Acute Coronary Syndrome Inclusion Criteria At DC or during hospital stay patient has or had the following: ACS DIAGNOSIS No Discharge Core Measures Meds if any: Prescribed or Continued at Discharge Meds if any: NOT Prescribed or Continued at Discharge Congestive Heart Failure Inclusion Criteria At DC or during hospital stay patient has or had the following: CHF DIAGNOSIS No Discharge Core Measures Meds if any: Prescribed or Continued at Discharge Meds if any: NOT Prescribed or Continued at Discharge Cerebrovascular accident Inclusion Criteria At DC or during hospital stay patient has or had the following: CVA/TIA Diagnosis No Discharge Core Measures Meds if any: Prescribed or Continued at Discharge Meds if any: NOT Prescribed or Continued at Discharge Venous thromboembolism Inclusion Criteria VTE Diagnosis No VTE Type NONE VTE Confirmed by (Test) NONE Discharge Core Measures - Per Current guidelines, there needs to be overlap - treatment for the first 5 days of Warfarin therapy. - If discharged on Warfarin prior to 5 days of - overlap therapy, the patient will need to be - assessed for post discharge needs including - *Post discharge parental anticoagulation - *Warfarin and/or parental anticoagulation education - *Follow up date to check INR post discharge At least 5 days overlap therapy as Inpatient No Meds if any: Prescribed or Continued at Discharge Note: Overlap Therapy is Warfarin and Anticoagulant Meds if any: NOT Prescribed or Continued at Discharge
--- NOTE | 2017-06-10 13:13 | PN- Pulmonary ---
Subjective HPI/Critical Care Issues: Wishing to go home still wheezing Objective Current Medications: Current Medications Sig/Leopoldo Start time Last Medication Dose Route Stop Time Status Admin Acetaminophen 650 MG Q6P PRN 06/08 1200 AC PO Albuterol Sulfate 3 ML EVERY 4 HRS/AWAKE 06/08 1600 AC 06/10 INH 1121 Alprazolam 0.25 MG BID PRN 06/08 1430 AC 06/09 PO 06/15 1429 1735 Azithromycin 250 MG DAILY 06/09 1000 DC 06/10 PO 06/10 1001 1001 Enoxaparin Sodium 40 MG DAILY 06/09 1000 AC SC Ibuprofen 600 MG Q6P PRN 06/08 1200 AC PO Ipratropium Cassandra 2.5 ML EVERY 4 HRS/AWAKE 06/09 2000 AC 06/10 INH 1121 Methylprednisolone 40 MG Q8 06/09 0600 AC 06/10 IV 0631 Omeprazole 20 MG DAILY AC 06/09 1400 AC 06/10 PO 0631 Oxycodone HCl 10 MG Q6P PRN 06/08 1200 AC PO Vital Signs & I&O Last 24 Hrs of Vitals and I&O: Vital Signs Date Time Temp Pulse Resp B/P B/P Pulse O2 O2 Flow FiO2 Mean Ox Delivery Rate 06/10 0800 95 Nasal 1.0L Cannula 06/10 0756 98 Nasal 2.0L Cannula 06/10 0653 98.5 84 20 116/80 92 06/10 0000 93 Nasal 2.0L Cannula 06/09 2239 98.7 68 20 130/80 93 Nasal Cannula 06/09 1655 97 Nasal 3.0L Cannula 06/09 1600 93 Nasal 3.0L Cannula 06/09 1449 98.6 69 20 110/60 96 Intake & Output 06/10 1600 06/10 0800 06/10 0000 Intake Total 500 50 480 Output Total 200 Balance 500 50 280 Intake, IV 0 Intake, Oral 500 50 480 Number 0 Bowel Movements Output, Urine 200 Impression/Plan Impression/Plan Impression/Plan: General Appearance Alert, Oriented X3, Cooperative, Mild Distress/on BiPAP, significantly dyspneic using accessory muscles. HEENT Atraumatic, PERRLA, EOMI, Mucous Membr. moist/pink Neck Supple, No LAD Cardiovascular tachycardic Lungs diffuse expiratory wheezes in all lung youssef. She also has diminished air movement. Abdomen Soft, No Tenderness Neurological Normal Speech, Cranial Nerves 3-12 NL SIGNIFICANT DATA Chest x-ray unremarkable Previous respiratory allergy panel reviewed which shows that she has significant allergies to dog and her dog IgE was more than 85 and her total IgE was more than 1000. She is also has positive IgE for Birch Maple and oak. Other blood work reviewed. She has had eosinophilia before. Her baseline bicarbonate was normal anion gap was 17 earlier and 15 today. A white count was not elevated on the 10th now elevated today probably related to steroids. IMPRESSION This is a 26-year-old lady with moderate to severe persistent asthma, anxiety, panic attack, significant allergies to dog and trees who has 4 dogs at home, significant eosinophilic asthma, significantly elevated IgE, now comes in with acute severe asthma. Her issues include * Resolved Acute hypoxemic respiratory failure, initially requiring noninvasive ventilator due to acute severe asthma exacerbation. Now off BPAP and improving * Significant allergic asthma with eosinophilia with very high IgE * Significant allergy to dogs unfortunately patient has many dogs at home which is inciting or asthma * Ongoing cigarette smoking * Anxiety with steroids exacerbating this is well RECOMMENDATION * Continue high-dose steroids with a taper * [id number] nebulizer therapy with DuoNeb every 4 hours * Continue low-dose benzo prn * Continue azithromycin * Continue subcutaneous heparin or Lovenox * Keep the head of bed elevated * Start proton pump inhibitor Discussed with the patient again about her allergen exposure
--- NOTE | 2017-06-10 14:02 | Event Note ---
Event Note Event Note: At 1 PM I waspaged Because the patient wanted to leave AMA, I went and explained to the patient the risks of leaving at this point since she is on IV steroids but she insisted on leaving AMA. Her medications were transmitted to her pharmacy, she was provided with referral to fluorescent lamp replacer and was advised to follow up in 1 week of discharge
--- NOTE | 2017-06-11 14:31 | Discharge Summary ---
Visit Information Visit Dates Admission Date: 06/08/17 Discharge Date: 06/10/17 Hospital Course Course Attending Physician: Vaughn White MD Primary Care Physician: Patient Has No Primary Care Dr Hospital Course: 26 YO F with PMH of asthma, anxiety, panic attacks who comes in for CC SOB. She states that her symptoms started about 5 days ago and worsened until she came to ED on Jun 05 for dyspnea with minimal exertion (walking from front door to car). Her symptoms were of sudden onset. She woke up with malaise, some coryza and a dry cough. ED course: Vitals: Temperature 98.9, pulse 117, respiratory rate 26, blood pressure 141/70, Oxygen saturation 95% on 3 L of oxygen Labs: WBC count 12.6, hemoglobin 15.6, hematocrit 45.9, platelet count 241, sodium 143, potassium 4.4, BUN 17, creatinine 0.7, glucose 101, BUN/creatinine ratio 24.3, calcium 9.6, magnesium 2.0, troponin less than 0.09 Status Asthmaticus with acute hypoxic respiratory failure: Patient was admitted with significant shortness of breath with bilateral wheezing on general medicine floor to treat for status asthmaticus. Patient was started on IV Solu-Medrol with nebulization treatment administered. Pulmonary consult was obtained and recommendations were followed. Sputum cultures were obtained. Daily peak flow rate was checked. Supplemental oxygen was given to maintain oxygen saturation above 90%. During the hospital stay initially patient remained anxious and short of breath. Patient was put on BiPAP considering her short of breath. She was also given IV magnesium to relieve her short of breath. Patient was given Xanax as needed considering her anxiety. Patient also given azithromycin initially. After patient's short of breath has resolved with BiPAP patient was put off BiPAP. Patient is IV steroids were tapered and she was given oral steroid. During the hospital stay patient was on IV steroids and then she decided to leave AMA. Risks and benefits for living at this point when she was on IV steroids were discussed with patient but patient wanted to leave AMA. 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 History of anxiety: -Patient was given Xanax during hospital stay. History of smoking: -Patient was counseled for smoking cessation. Due to prophylaxis: Mechanical and Lovenox subcutaneous. CODE STATUS; Full code Allergies: Coded Allergies: Sulfa (Sulfonamide Antibiotics) (UNKNOWN 06/06/17) cefaclor (UNKNOWN 06/06/17) Pertinent Lab Results: Chest x-ray on 06/08/2017; IMPRESSION: No focal airspace disease. WBC count 7.4, hemoglobin 15.3, hematocrit 45.4, platelet count 258, sodium 140, potassium 4.4, BUN 22, creatinine 0.7, magnesium 2.0 Disposition Summary Disposition Principal Diagnosis: Acute hypoxic respiratory failure due to status asthmaticus. Additional Diagnosis: Anxiety Panic attack Discharge Disposition: home or self care Discharge Instructions General Discharge Information Code Status: Full Code Patient's Diet: Regular diet Patient's Activity: Self-limited Follow-Up Instructions/Appts: Follow-up with your ballet company member in 1 week. Medications at Discharge Discharge Medications: Stop taking the following medications: Azithromycin (Zithromax) 250 MG TABLET ORAL As Directed Qty = 4 Prednisone (Prednisone) 50 MG TABLET ORAL DAILY Qty = 4 Continue taking these medications: Albuterol Sulfate (Ventolin Hfa) 90 MCG HFA.AER.AD 2 Puff Inhale through mouth EVERY 4-6 HOURS NEEDED as needed for wheeze Qty = 1 Comments: DID NOT ADMINISTER IN HOSPITAL Budesonide/Formoterol Fumarate (Symbicort 160-4.5 Mcg Inhaler) 160 MCG-4.5 MCG/ ACTUATION HFA.AER.AD 2 Puff Inhale through mouth TWICE DAILY Qty = 30 Comments: DID NOT ADMINISTER IN HOSPITAL Start taking the following new medications: Omeprazole (Omeprazole) 20 MG CAPSULE.DR 20 Milligram ORAL DAILY BEFORE BREAKFAST Qty = 30 No Refills Comments: Last Taken: 06/10/16 Time: 6:30AM Prednisone (Prednisone) 10 MG TABLET 1 Tablet ORAL DAILY Qty = 36 No Refills Comments: TAKE 4 TABS DAILY ON 06/11-06/13 TAKE 3 TABS DAILY ON 06/14-06/16 TAKE 2 TABS DAILY ON 06/17-06/19 TAKE ONE TAB DAILY ON 06/20-06/22 IV SOLUMEDROL ADMINISTERED Copies To: Prerna MANTILLA,Vel
== END 2017-06-10 13:26 | disposition left against medical advice (07) | DRG 202 ==
LOC: ERH 07:17 → ERHI 10:16 → ENRESERV 10:53 → ENTRNSPT 11:26 → EDTRNSPT 12:07 → EDTRNSPTSTS 12:07 → 2NA 12:09 → CMPTRNSPT 12:15 → 2NA 06-10 13:26
PROVIDERS: Emergency Medicine; Student in an Organized Health Care Education/Training Program
PROC: 5A09357 Assistance with Respiratory Ventilation, Less than 24 Consecutive Hours, Continuous Positive Airway Pressure (ICD-10-PCS; principal; 2017-06-08)
DX: J45.52 Severe persistent asthma with status asthmaticus (principal); J96.01 Acute respiratory failure with hypoxia; F17.210 Nicotine dependence, cigarettes, uncomplicated; F41.9 Anxiety disorder, unspecified
CPT/HCPCS: 2NAP; 36415; 71045; 80307; 82436; 93005; 93010; J0456; J1650; J2920; J2930